=== PATIENT | female | born 1940 | race Caucasian/White ===

== ENCOUNTER 2024-02-13 13:16 | Emergency (ER) | payer MEDICARE, OTHER, SELFPAY ==
[2024-02-13 13:18] VITALS: BP 166/83
--- NOTE | 2024-02-13 14:48 | ED.GENMED ---
History of Present Illness
General
Chief Complaint: Head Injury
Source: patient and family (Daughter)
Exam Limitations: none
Time Seen by Provider: 02/13/24 14:20
Nursing documentation reviewed up to this point in time: agreed with
Travel History
Have you had any contact with someone who has COVID-19?: No
Do you have any symptoms of coronavirus? Fever > 100 degrees, chills, cough, shortness of breath, sore throat, loss of taste or smell, muscle aches, or headache?: No
History of Present Illness
History of Present Illness:
83-year-old female with a past medical history of hypertension, hyperlipidemia who presents to the emergency department for evaluation after head trauma. Patient reports that she was in the garden last night and when she stood up she hit her head
on the windowsill. She says that she sustained a bump on her head. She did not pass out/lose consciousness. She did not sustain any other injury or trauma. She says that she has had some mild dizziness since. She says that she was icing her
head last night but was up all night because she was concerned that she had a serious head injury. She says she did not sleep at all. She decided she would call her doctor this morning for assessment and was directed to the emergency room to be
evaluated. She denies any significant headache. Denies any nausea or vomiting. She denies any change in vision or speech, focal weakness or numbness in her extremities. Denies any neck pain. Denies any other complaints. She is not on blood
thinners.
Past History
Past History
ED Past Medical History: HTN, Hypercholesterolemia and Hypothyroidism
Social History
Personal:
Living: with family
Review of Systems
Review of Systems
All Other Systems: ROS reviewed and negative except as documented in HPI and ROS
Constitutional: Denies fever or chills
EENT: Denies sore throat or runny nose
Respiratory: Denies cough or trouble breathing
Cardiac: Denies chest pain or palpitations
ABD/GI: Denies abdominal pain, nausea or vomiting
: Denies flank pain
Musculoskeletal: Denies neck pain or back pain
Neurological: Reports dizzy; Denies headache, weakness or numbness
Phy Exam
Physical Exam
Physical Exam:
General: Awake, alert, oriented x3; no acute distress
Head: Normocephalic, small right parietal scalp hematoma
Eyes: Conjunctiva normal, EOMI, pupils equal round and reactive to light bilaterally
Throat: Airway intact, handling secretions, tongue atraumatic
Neck: Trachea midline, no cervical spine tenderness, full range of motion of the neck without discomfort
Lungs: Clear to auscultation bilaterally, no wheezing, rales, rhonchi
Heart: Regular rate and rhythm, no murmurs, gallops, or rubs
Neuro: Cranial nerves grossly intact, speech fluid, motor and sensory function intact in all extremities, ambulatory
Skin: no rash
Extremities: Warm and well-perfused
Scores
Heart Failure Risk
Heart Failure Risk Score: Not Applicable
Heart Score for Chest Pain Patients
STEMI patient?: Not applicable
Withdrawal Assessment of Alcohol
Withdrawal Assessment Completed?: Not applicable
Course
Orders/Labs/Results
Orders:
Orders
02/13/24 13:26
CT Head W/o Iv Contrast Urgent
Comment:
Reason For Exam: head injury, dizziness
Vital Signs
Initial and Last Documented VS:
Initial Vital Signs
Temp Pulse Resp BP Pulse Ox
36.7 C 72 16 166/83 98
02/13/24 13:18 02/13/24 13:18 02/13/24 13:18 02/13/24 13:18 02/13/24 13:18
Last Documented Vital Signs
Temp Pulse Resp BP Pulse Ox
36.7 C 72 16 166/83 98
02/13/24 13:18 02/13/24 13:18 02/13/24 13:18 02/13/24 13:18 02/13/24 13:18
MDM/Problems Addressed
Differential Diagnosis Includes:
Concussion, intracranial hemorrhage, scalp hematoma
MDM/Problems Addressed:
83-year-old female presents for evaluation after minor head trauma�struck her head on a windowsill as described above. She has had some mild dizziness since but no other complaints. She is not on blood thinners. Sent for CT head which was
negative for any acute pathology. Suspect dizziness might be related to a mild concussion or could be secondary to lack of sleep as she says she did not sleep at all last night because she was worried about going to sleep after the head trauma. I
think she is stable for discharge at this point in time, advised to follow-up with PCP. She feels comfortable this plan. We spoke about return precautions and all questions were answered.
*Radiology
Radiology exam reviewed: radiology read reviewed
*Pulse Oximetry
Patient hypoxic: no
*Critical Care Note
Total Time (30-74mins, 75-104mins- exclusive of procedures): Not Applicable
Data Reviewed
Source: patient and family (Daughter)
ED Attending Note
-
Portions of this chart may have been created with voice recognition software.� Occasional wrong word or��sound alike� substitutions may have occurred due to the inherent limitations of voice recognition software.
Discharge Plan
Departure
Patient Disposition: Home (Routine Discharge)
Date of Disposition: 02/13/24
Time of Disposition: 14:41
Patient with high blood pressure during this ER visit?: Yes
Discharge Problem:
Hematoma of scalp
Instructions: Concussion, Adult (DC), Head Injury in Adults (DC)
Prescriptions:
No Action
hydrocodone-acetaminophen 1 TABLET tablet
1 tab PO Q4HPRN PRN (Reason: pain) Qty: 15 0RF
Activity Restrictions/Additional Instructions:
Thank you for visiting the Emergency Department at [facility] [place].
1. Please schedule a follow up appointment as directed. Call first thing tomorrow morning to make an appointment.
2. If indicated, please take your medications as instructed and indicated on discharge paperwork.
3. If any of your symptoms do not improve, or persist, or become more severe within 6-12 hours, please return to the emergency department for further care.
4. Please return to the emergency department if you develop a headache, neck pain/stiffness, fever greater than 100.4F, chest pain, shortness of breath, persistent nausea, vomiting, slurred speech, difficulty walking, numbness/tingling, weakness,
signs of infection or any other symptoms that are worrisome to you.
Please call [phone] if you have any questions.
Interventions
Interventions:
*General Assessment Last Done: 02/13/24 13:18
*ED COVID-19 Vaccine History Last Done: 02/13/24 13:18
Discharge Date and Time
Print Language: LAO
== END 2024-02-13 14:59 | disposition home or self-care (01) ==
LOC: EMR 13:16
PROVIDERS: EMERGENCY PHYSICIAN Emergency Medicine; FAMILY PHYSICIAN Internal Medicine
DX: S00.03XA Contusion of scalp, initial encounter (principal); R42 Dizziness and giddiness; W22.09XA Striking against other stationary object, initial encounter; Y92.007 Garden or yard of unspecified non-institutional (private) residence as the place of occurrence of the external cause; I10 Essential (primary) hypertension; E03.9 Hypothyroidism, unspecified; E78.00 Pure hypercholesterolemia, unspecified; Z96.641 Presence of right artificial hip joint
CPT/HCPCS: 99284; 70450

== ENCOUNTER → 2024-08-18 12:46 | Outpatient (REF) | payer MEDICARE, OTHER, SELFPAY | LOC: PAVMRI 12:46 | PROVIDERS: ATTENDING PHYSICIAN Internal Medicine | DX: M54.16 Radiculopathy, lumbar region (principal); M79.604 Pain in right leg | CPT/HCPCS: 72148 ==

== ENCOUNTER 2024-09-02 11:16 | Emergency (ER) | payer MEDICARE, OTHER, SELFPAY ==
[2024-09-02 11:20] VITALS: BP 174/67
--- NOTE | 2024-09-02 12:07 | ED.GENMED ---
History of Present Illness
General
Chief Complaint: Musculo-Skeletal Complaint
Time Seen by Provider: 09/02/24 11:46
History of Present Illness
History of Present Illness:
83-year-old female presents to the emergency department for eval of right ankle swelling and pain for the past 10 days, states while raking leaves she stepped in a hole in the yard, did not fall to the ground. She is able to ambulate with
discomfort and a limp. Pain to the anterior ankle joint. No knee or hip pain
Past History
Past History
ED Past Medical History: HTN, Hypercholesterolemia and Hypothyroidism
Social History
Personal:
Living: with family
Review of Systems
Review of Systems
Allergies reviewed?: Yes
All Other Systems: ROS reviewed and negative except as documented in HPI and ROS
Phy Exam
Physical Exam
Physical Exam:
GEN: Well appearing, NAD, WDWN
HEENT: Oral mucosa moist, no scleral icterus
Cardiac: Regular rate
Lung: No respiratory distress, no tachypnea
MSK: Mild right ankle effusion anteriorly, normal range of motion however moderate pain elicited throughout entire range, no crepitus. No medial or lateral malleoli or tenderness, no tenderness to the base of the fifth metatarsal
Skin: Good color, no pallor or jaundice, no rashes
Neuro: AO x3, moves all extremities freely
Psych: Calm, cooperative
Course
Orders/Labs/Results
Orders:
Orders
09/02/24 12:06
CR Ankle - Right Min 3 Views * Urgent
Comment:
Reason For Exam: trip and fall
09/02/24 12:33
Ortho Boot Right- Treatment ONCE
Short or tall?: Short
Vital Signs
Initial and Last Documented VS:
Initial Vital Signs
Temp Pulse Resp BP Pulse Ox
98 F 73 16 174/67 98
09/02/24 11:20 09/02/24 11:20 09/02/24 11:20 09/02/24 11:20 09/02/24 11:20
Last Documented Vital Signs
Temp Pulse Resp BP Pulse Ox
98 F 73 16 174/67 98
09/02/24 11:20 09/02/24 11:20 09/02/24 11:20 09/02/24 11:20 09/02/24 11:20
MDM/Problems Addressed
MDM/Problems Addressed:
Small avulsion fracture was identified on ankle x-ray however this is not congruent with the patient's injury or source of pain. Rather she likely has a intra-articular bone bruise and/or high ankle sprain/interosseous disruption. Will place an
orthopedic boot and refer to orthopedics as an outpatient
*Critical Care Note
Total Time (30-74mins, 75-104mins- exclusive of procedures): Not Applicable
ED Attending Note
-
Portions of this chart may have been created with voice recognition software.� Occasional wrong word or��sound alike� substitutions may have occurred due to the inherent limitations of voice recognition software.
Discharge Plan
Departure
Patient Disposition: Home (Routine Discharge)
Date of Disposition: 09/02/24
Time of Disposition: 12:32
Patient with high blood pressure during this ER visit?: No
Discharge Problem:
High ankle sprain
Instructions: Ankle sprain - ED discharge instructions
Prescriptions:
No Action
hydrocodone-acetaminophen 1 TABLET tablet
1 tab PO Q4HPRN PRN (Reason: pain) Qty: 15 0RF
Referrals:
Pablo Vick MD [Family Provider] -
Domenico Hernandez MD [Active] -
Activity Restrictions/Additional Instructions:
Use the boot when walking, you may remove for showering and sleep
Ice often
Follow up with Orthopedics in 1-2 weeks for re-assessment
Interventions
Interventions:
*Risk Screen - Suicide Last Done: 09/02/24 11:21
*Neglect/Abuse Screening Last Done: 09/02/24 11:21
*Nursing Disposition Last Done: 09/02/24 16:58
Discharge Date and Time
Discharge Date/Time: 09/02/24 16:59
Print Language: GUAMANIAN
== END 2024-09-02 16:59 | disposition home or self-care (01) ==
LOC: EMR 11:16
PROVIDERS: EMERGENCY PHYSICIAN Emergency Medicine; FAMILY PHYSICIAN Internal Medicine
DX: S93.401A Sprain of unspecified ligament of right ankle, initial encounter (principal); X50.1XXA Overexertion from prolonged static or awkward postures, initial encounter; E03.9 Hypothyroidism, unspecified; E78.00 Pure hypercholesterolemia, unspecified; I10 Essential (primary) hypertension
CPT/HCPCS: 99283; 73610

== ENCOUNTER → 2024-09-20 10:14 | Outpatient (REF) | payer MEDICARE, OTHER, SELFPAY | LOC: MRI 3T 10:14 | PROVIDERS: ATTENDING PHYSICIAN Orthopaedic Surgery | DX: S86.211A Strain of muscle(s) and tendon(s) of anterior muscle group at lower leg level, right leg, initial encounter (principal) | CPT/HCPCS: 73721 ==